=== PATIENT | female | born 2000 | race Caucasian/White ===

== ENCOUNTER 2018-04-01 10:22 | Emergency (ER) | payer SELFPAY ==
[~2018-04-01] VITALS: Ht 157.5 cm; Wt 73.4 kg
[2018-04-01 10:32] VITALS: BP 129/60; PULSE 94; RESP 20; Ht 157.5 cm; Wt 73.4 kg
[2018-04-01] MEDS ORDERED: SOD CHLORIDE 0.9% 1,000 ML IV STA (11:37)
[2018-04-01] MEDS ORDERED: ONDA4TAB14 PO (14:22)
[2018-04-01] MEDS ORDERED: IBUP-1542 PO (14:22)
[2018-04-01] MEDS ORDERED: NITR-58 PO (14:26)
--- NOTE | 2018-04-01 15:52 | ERD ---
ER Documentation Chief Complaint Chief Complaint Complains of dizziness nausea and headache x 3 days HPI 17-year-old female patient with past medical history of ovarian cyst presents to ED complaining of dizziness, nausea, headache, left lower quadrant abdominal pain that started about 3 days ago. Patient reports that when she walks, it worsens her abdominal pain. Denies any fever, chills, diarrhea, chest pain, shortness of breath. Patient reports that her last mensuration was on March 09, 2018. ROS All systems reviewed and are negative except as per history of present illness. Medications Home Meds Active Scripts Nitrofurantoin Monohyd Macrocr* (Macrobid*) 100 Mg Capsr, 100 MG PO BID for 7 Days, CAP Prov:ALEXIS MCNEILL PA-C 04/01/18 Ondansetron (Ondansetron Odt) 4 Mg Tab.rapdis, 4 MG PO Q6H PRN for NAUSEA AND/OR VOMITING, #10 TAB Prov:ALEXIS MCNEILL PA-C 04/01/18 Ibuprofen* (Motrin*) 600 Mg Tab, 600 MG PO Q6, #30 TAB Prov:ALEXIS MCNEILL PA-C 04/01/18 Allergies Allergies: Coded Allergies: No Known Allergy (Unverified , 04/01/18) PMhx/Soc Medical and Surgical Hx: pt denies Surgical Hx Hx Miscellaneous Medical Probl: Yes (ovarian cyst) Hx Alcohol Use: No Hx Substance Use: No Hx Tobacco Use: No Smoking Status: Never smoker FmHx Family History: No diabetes, No coronary disease Physical Exam Vitals Vital Signs Date Temp Pulse Resp B/P (MAP) Pulse Ox O2 O2 Flow FiO2 Time Delivery Rate 04/01/18 98.6 94 20 129/60 100 10:32 (83) Physical Exam Const: [id number], well-nourished. In no acute distress. Head: Atraumatic, normocephalic Eyes: Normal Conjunctiva without injection. No purulent discharge. ENT: Normal external ear, nose. Moist oropharynx without tonsillar exudates. Non-erythematous pharynx. Uvula midline. No drooling. No trismus. Neck: No cervical midline tenderness. Full range of motion. No meningismus. No cervical lymphadenopathy. No JVD. Resp: Clear to auscultation bilaterally. No wheezing, rhonchi, rales, or crackles. No accessory muscle use. No retractions. Cardio: Regular rate and rhythm. No murmurs, rubs or gallops. Abd: Soft, left lower quadrant tenderness, non distended. Normal bowel sounds. No palpable masses. No rebound tenderness. No guarding. Negative McBurney's point. Negative psoas sign. Negative obturator sign. Skin: No petechiae or rashes Back: No midline tenderness. No CVA tenderness. Ext: No cyanosis, or edema. Neur: Awake and alert. Normal gait. Normal coordination. Psych: Normal Mood and Affect Result Diagram: 04/01/18 1149 04/01/18 1148 Results 24 hrs Laboratory Tests Test 04/01/18 11:48 04/01/18 11:49 04/01/18 11:54 04/01/18 12:00 Urine Color YELLOW Urine Clarity SLIGHTLY CLOUDY Urine pH 7.0 Urine Specific 1.009 Eads Urine Ketones NEGATIVE mg/dL Urine Nitrite NEGATIVE mg/dL Urine Bilirubin NEGATIVE mg/dL Urine NEGATIVE mg/dL Urobilinogen Urine Leukocyte 2+ Jasmin/ul Esterase Urine Microscopic 2 /HPF RBC Urine Microscopic 5 /HPF WBC Urine Squamous MODERATE /HPF Epithelial Cells Urine Bacteria FEW /HPF Urine Hemoglobin NEGATIVE mg/dL Urine Glucose NEGATIVE mg/dL Urine Total NEGATIVE mg/dl Protein Sodium Level 142 mmol/L Potassium Level 4.1 mmol/L Chloride Level 105 mmol/L Carbon Dioxide 27 mmol/L Level Anion Gap 10 Blood Urea 7 mg/dl Nitrogen Creatinine 0.56 mg/dl Est Glomerular > 60 mL/min Filtrat Rate mL/min Glucose Level 90 mg/dl Calcium Level 9.5 mg/dl Total Bilirubin 0.1 mg/dl Direct Bilirubin 0.00 mg/dl Indirect 0.1 mg/dl Bilirubin Aspartate Amino 28 IU/L Transf (AST/SGOT) Alanine 41 IU/L Aminotransferase (ALT/SGPT) Alkaline 83 IU/L Phosphatase Total Protein 7.6 g/dl Albumin 4.3 g/dl Globulin 3.30 g/dl Albumin/Globulin 1.30 Ratio Lipase 138 U/L White Blood Count 8.4 10^3/ul Red Blood Count 4.75 10^6/ul Hemoglobin 12.3 g/dl Hematocrit 38.2 % Mean Corpuscular 80.4 fl Volume Mean Corpuscular 25.9 pg Hemoglobin Mean Corpuscular 32.2 g/dl Hemoglobin Concen t Red Cell 14.2 % Distribution Width Platelet Count 394 10^3/UL Mean Platelet 10.3 fl Volume Immature 0.800 % Granulocytes % Neutrophils % 60.0 % Lymphocytes % 27.3 % Monocytes % 6.5 % Eosinophils % 4.9 % Basophils % 0.5 % Nucleated Red 0.0 /100WBC Blood Cells % Immature 0.070 10^3/ul Granulocytes # Neutrophils # 5.1 10^3/ul Lymphocytes # 2.3 10^3/ul Monocytes # 0.6 10^3/ul Eosinophils # 0.4 10^3/ul Basophils # 0.0 10^3/ul Nucleated Red 0.0 10^3/ul Blood Cells # POC Beta HCG, NEGATIVE NEGATIVE Qualitative Current Medications Medications Dose Sig/Hunter Start Time Status Last (Trade) Ordered Route PRN Stop Time Admin Dose Reason Admin Sodium 1,000 ml @ Q1H STAT 04/01/18 DC 04/01/18 Chloride 1,000 mls/hr IV 11:37 11:57 04/01/18 12:36 Procedures/MDM 17-year-old female patient with no significant past medical history presents to ED complaining of dizziness, nausea, headache, abdominal pain. Patient is afebrile and nontoxic-appearing. Patient was further worked up with CBC, CMP, lipase, UA, urine , pelvic ultrasound Patient's pain and symptoms have improved after treatment with 1 L normal saline. CBC: No leukocytosis. No e/o of systemic infection. No e/o anemia. CMP: No e/o severe acidosis, alkalosis, renal failure, diabetic ketoacidosis, liver disease Lipase within normal limits. Urine: 2+ leukocyte esterase, no nitrites, no hematuria. She will be treated for urinary tract infection. Urine : Negative IMPRESSION: Large cyst in the left ovary measuring 5.8 cm with a possible 2.1 cm peripheral nodular component versus hemorrhagic portion. Follow-up pelvic MRI with contrast is recommended. Small amount of free fluid in the pelvis. Patient has a 5.8 cm ovarian cyst, 2.1 cm peripheral nodular cyst versus hemorrhagic. Patient was instructed to follow-up with her [employer]CHOOL RESOURCE OFFICER and obtain an MRI with contrast for further evaluation and treatment. Doppler shows good blood flow for both ovaries, low suspicion for ovarian torsion. Low suspicion for ectopic , ovarian torsion, gastritis, GERD, peptic ulcer disease, cholecystitis, choledocholithiasis, cholangitis, pancreatitis, appendicitis, bowel obstruction, ileus, volvulus, nephrolithiasis, pyelonephritis, hepatitis, perforated viscus, diverticulitis, strangulated/incarcerated hernia, DKA, acute abdomen, mesenteric ischemia or other emergent conditions. Diagnosis: Ovarian cyst, Vomiting Discharge medications: Macrobid, Zofran, Ibuprofen, Macrobid Follow up with primary care physician in 1-2 days for referral to account development manager. Instructed patient to return to the ED sooner for any worsening symptoms. Patient's questions were answered. Patient understood and agreed with discharge plan. Patient discharged stable. Departure Diagnosis: Primary Impression: Ovarian cyst Laterality: left Qualified Codes: N83.202 - Unspecified ovarian cyst, left side Additional Impression: Vomiting Vomiting type: unspecified Vomiting Intractability: unspecified Nausea presence: unspecified Qualified Codes: R11.10 - Vomiting, unspecified Condition: Stable Patient Instructions: What Are Ovarian Cysts?, Urinary Tract Infections in Women Referrals: [facility] YOU HAVE RECEIVED A MEDICAL SCREENING EXAM AND THE RESULTS INDICATE THAT YOU DO NOT HAVE A CONDITION THAT REQUIRES URGENT TREATMENT IN THE EMERGENCY DEPARTMENT. FURTHER EVALUATION AND TREATMENT OF YOUR CONDITION CAN WAIT UNTIL YOU ARE SEEN IN YOUR DOCTORS OFFICE WITHIN THE NEXT 1-2 DAYS. IT IS YOUR RESPONSIBILITY TO M SAMY AN APPOINTMENT FOR FOLOW-UP CARE. IF YOU HAVE A PRIMARY DOCTOR --you should call your primary doctor and schedule an appointment IF YOU DO NOT HAVE A PRIMARY DOCTOR YOU CAN CALL OUR PHYSICIAN REFERRAL HOTLINE AT IF YOU CAN NOT AFFORD TO SEE A PHYSICIAN YOU CAN CHOSE FROM THE FOLLOWING [facility] [address] [facility] [address] [facility] [facility] [address] [facility] [address] [facility] [address] [facility]. [facility]. [address] [facility] [facility] YOU HAVE RECEIVED A MEDICAL SCREENING EXAM AND THE RESULTS INDICATE THAT YOU DO NOT HAVE A CONDITION THAT REQUIRES URGENT TREATMENT IN THE EMERGENCY DEPARTMENT. FURTHER EVALUATION AND TREATMENT OF YOUR CONDITION CAN WAIT UNTIL YOU ARE SEEN IN YOUR DOCTORS OFFICE WITHIN THE NEXT 1-2 DAYS. IT IS YOUR RESPONSIBILITY TO MAKE AN APPOINTMENT FOR FOLOW-UP CARE. IF YOU HAVE A PRIMARY DOCTOR --you should call your primary doctor and schedule and appointment IF YOU DO NOT HAVE A PRIMARY DOCTOR YOU CAN CALL OUR PHYSICIAN REFERRAL HOTLINE AT . IF YOU CAN NOT AFFORD TO SEE A PHYSICIAN YOU CAN CHOSE FROM THE FOLLOWING [facility] INSTITUTIONS: [facility] [address] [place] [address] [facility] [address] [place] [address] [facility] [address] [place] [address] [facility] S[employer]OL RESOURCE OFFICER [place] [address] [facility] [address] [place] [address] OFFICE FAX MARCIA CHAMPAGNENICA [address] [place] [address] [facility] [address] [place] [address] KATHY CANOTANNA [address] [facility], [address], [facility] [address] KANIKA MCDUFFIE [address] [place] [address] [facility] [address] [place] [address] [phone] [address] [facility] [address] - LORRAINE GREGG [address], [place] [address] MARIBELL CLAYTON [address] [facility]. [address], [place] [address] CLAUDE KINNEY [address] [place], [place] [id number] [facility] Hours: 8:00 am - 5:00 pm Additional Instructions: Call your primary care doctor TOMORROW for an appointment during the next 2-3 days.See the doctor sooner or return here if your condition worsens before your appointment time. ALEXIS MCNEILL PA-C Apr 01, 2018 15:52
[2018-04-02] MEDS ORDERED: IBUP-1542 PO (11:01)
[2018-04-02] MEDS ORDERED: TRAM50TA2 PO (11:01)
== END 2018-04-01 14:35 | disposition home or self-care (01) ==
LOC: FTE 10:22
DX: N83.202 Unspecified ovarian cyst, left side (principal); R10.2 Pelvic and perineal pain
CPT/HCPCS: 36415; 76830; 76856; 80053; 81001; 81025; 83690; 85025; 99285; J7030

== ENCOUNTER → 2018-04-02 | Emergency (ER) | payer MEDICAID ==
[~2018-04-02] VITALS: Ht 157.5 cm; Wt 73.3 kg
[~2018-04-02] MED LIST: CEFTRIAXONE 1 GM/50 ML (PMX) 50 ML IVPB ONE; IBUP-1542 PO; KETOROLAC 30 MG INJ IV STA; NITR-58 PO; ONDA4TAB14 PO; ONDANSETRON 4 MG INJ IV STA; TRAM50TA2 PO; morphine 4 MG/ML VIAL IV STA
[2018-04-02 08:06] VITALS: Ht 157.5 cm; Wt 73.3 kg
--- NOTE | 2018-04-02 11:06 | ERD ---
ER Documentation Chief Complaint Chief Complaint CAME FOR RECHECK LEFT OVARIAN CYST; STARTED TO BLEED, PAIN NOT BETTER HPI 17-year-old female presents for left lower quadrant abdominal pain. She complains of vaginal bleeding today. Seen here yesterday and diagnosed with a 5 cm left ovarian cyst. Patient states that she has had a history of ovarian cyst since she was age 12. She denies any fevers. She has some nausea and vomiting yesterday but none today. She denies any fevers, urinary complaints although she was diagnosed with UTI yesterday and is taking Macrobid. ROS All systems reviewed and are negative except as per history of present illness. Medications Home Meds Active Scripts Tramadol HCl (Tramadol HCl) 50 Mg Tablet, 50 MG PO Q4 PRN for PAIN, #15 TAB Prov:BELGICA PETERS MD 04/02/18 Ibuprofen* (Motrin*) 600 Mg Tab, 600 MG PO Q6, #20 TAB Prov:BELGICA PETERS MD 04/02/18 Nitrofurantoin Monohyd Macrocr* (Macrobid*) 100 Mg Capsr, 100 MG PO BID for 7 Days, CAP Prov:ALEXIS MCNEILL PA-C 04/01/18 Ondansetron (Ondansetron Odt) 4 Mg Tab.rapdis, 4 MG PO Q6H PRN for NAUSEA AND/OR VOMITING, #10 TAB Prov:ALEXIS MCNEILL PA-C 04/01/18 Ibuprofen* (Motrin*) 600 Mg Tab, 600 MG PO Q6, #30 TAB Prov:ALEXIS MCNEILL PA-C 04/01/18 Allergies Allergies: Coded Allergies: No Known Allergy (Unverified , 04/01/18) PMhx/Soc Medical and Surgical Hx: pt denies Surgical Hx Hx Miscellaneous Medical Probl: Yes (ovarian cyst) Hx Alcohol Use: No Hx Substance Use: No Hx Tobacco Use: No FmHx Family History: No diabetes, No coronary disease, No other Physical Exam Vitals Vital Signs Date Temp Pulse Resp B/P (MAP) Pulse Ox O2 O2 Flow FiO2 Time Delivery Rate 04/02/18 98.1 87 18 123/58 97 08:06 (79) Physical Exam Const: No acute distress Head: Atraumatic Eyes: Normal Conjunctiva ENT: Normal External Ears, Nose and Mouth. Neck: Full range of motion. No meningismus. Resp: Clear to auscultation bilaterally Cardio: Regular rate and rhythm, no murmurs Abd: Soft, tender left lower quadrant without rebound. No tenderness McBurney's point no Garcia sign., non distended. Normal bowel sounds Skin: No petechiae or rashes Back: No midline or flank tenderness Ext: No cyanosis, or edema Neur: Awake and alert Psych: Normal Mood and Affect Result Diagram: 04/02/1892904/02/18929 Results 24 hrs Laboratory Tests Test 04/02/18 09:30 04/02/18 09:40 White Blood Count 8.1 10^3/ul Red Blood Count 4.67 10^6/ul Hemoglobin 12.1 g/dl Hematocrit 38.1 % Mean Corpuscular Volume 81.6 fl Mean Corpuscular Hemoglobin 25.9 pg Mean Corpuscular Hemoglobin Concent 31.8 g/dl Red Cell Distribution Width 14.4 % Platelet Count 363 10^3/UL Mean Platelet Volume 9.9 fl Immature Granulocytes % 0.500 % Neutrophils % 63.2 % Lymphocytes % 24.8 % Monocytes % 6.4 % Eosinophils % 4.7 % Basophils % 0.4 % Nucleated Red Blood Cells % 0.0 /100WBC Immature Granulocytes # 0.040 10^3/ul Neutrophils # 5.1 10^3/ul Lymphocytes # 2.0 10^3/ul Monocytes # 0.5 10^3/ul Eosinophils # 0.4 10^3/ul Basophils # 0.0 10^3/ul Nucleated Red Blood Cells # 0.0 10^3/ul Urine Color RED Urine Clarity SLIGHTLY CLOUDY Urine pH 6.0 Urine Specific Hendrum 1.006 Urine Ketones NEGATIVE mg/dL Urine Nitrite NEGATIVE mg/dL Urine Bilirubin NEGATIVE mg/dL Urine Urobilinogen NEGATIVE mg/dL Urine Leukocyte Esterase 1+ Jasmin/ul Urine Microscopic RBC 12 /HPF Urine Microscopic WBC 20 /HPF Urine Squamous Epithelial Cells FEW /HPF Urine Calcium Oxalate Crystals MODERATE /HPF Urine Bacteria FEW /HPF Urine Hemoglobin 3+ mg/dL Urine Glucose NEGATIVE mg/dL Urine Total Protein 1+ mg/dl Sodium Level 142 mmol/L Potassium Level 4.2 mmol/L Chloride Level 106 mmol/L Carbon Dioxide Level 26 mmol/L Anion Gap 10 Blood Urea Nitrogen 5 mg/dl Creatinine 0.56 mg/dl Est Glomerular Filtrat Rate mL/min > 60 mL/min Glucose Level 91 mg/dl Calcium Level 9.8 mg/dl Total Bilirubin 0.3 mg/dl Direct Bilirubin 0.00 mg/dl Indirect Bilirubin 0.3 mg/dl Aspartate Amino Transf (AST/SGOT) 27 IU/L Alanine Aminotransferase (ALT/SGPT) 40 IU/L Alkaline Phosphatase 84 IU/L Total Protein 7.4 g/dl Albumin 4.2 g/dl Globulin 3.20 g/dl Albumin/Globulin Ratio 1.31 Lipase 107 U/L POC Beta HCG, Qualitative NEGATIVE Current Medications Medications Dose Sig/Hunter Start Time Status Last (Trade) Ordered Route PRN Stop Time Admin Dose Reason Admin Morphine 4 mg ONCE STAT 04/02/18 DC 04/02/18 Sulfate IV 08:54 09:27 (morphine) 04/02/18 08:55 Ondansetron 4 mg ONCE STAT 04/02/18 DC 04/02/18 HCl (Zofran IV 08:54 09:27 Inj) 04/02/18 08:55 Ceftriaxone 50 ml @ ONCE ONCE 04/02/18 DC 04/02/18 Sodium 100 mls/hr IVPB 10:30 10:49 04/02/18 10:59 Ketorolac 30 mg ONCE STAT 04/02/18 DC 04/02/18 Tromethamine IV 10:18 10:49 (Toradol) 04/02/18 10:26 Procedures/MDM Patient presents with left lower quadrant abdominal pain. Pelvic ultrasound shows unchanged 5 cm simple left ovarian cyst. HCG negative. CBC and CMP normal. Patient initially given morphine 4 mg and Zofran 4 mill grams IV. Patient was given Rocephin 1 g IV for findings of persistent UTI. Urine was sent for culture. She is given Toradol 30 milligrams IV as well. Labor is Dr. Hyde did evaluate the patient at bedside who diagnosed a likely chronic issue can be followed as an outpatient. There is no signs of torsion, appendicitis, ectopic , surgical abdomen patient is well-appearing after observation treatment. She will be treated with tramadol, ibuprofen, continuation of Macrobid, and will be referred to [facility] clinic provided by labor is. She should return for fevers, vomiting, worsening pain, new worsening symptoms. The patient was stable with no new complaints during the ER course. Clinically, there is no current evidence to suggest meningitis, sepsis, acute abdomen, pneumonia, stroke, acute coronary syndrome, pulmonary embolism, aortic dissection or any other emergent condition appearing to require further evaluation or hospitalization. Patient counseled regarding my diagnostic impression and care plan. Prior to discharge all questions answered. Pt agrees with treatment plan and understands strict return precautions. Pt is instructed to follow up with primary care provider within 24-48 hours. Precautionary instructions provided including instructions to return to the ER if not improving or for any worsening or changing symptoms or concerns. Departure Diagnosis: Primary Impression: Ovarian cyst Laterality: left Qualified Codes: N83.202 - Unspecified ovarian cyst, left side Condition: Stable Patient Instructions: Urinary Tract Infections in Women, Ovarian Cyst Additional Instructions: Continue Macrobid for urinary tract infection. Recommend clinic at [address] [place] [address], for gynecology evaluation Check for fevers, worsening pain, vomiting, new or worsening symptoms. Ultrasound shows cyst unchanged from previous. BELGICA PETERS MD Apr 02, 2018 11:06
[2018-04-02 11:11] VITALS: BP 110/55; PULSE 71; RESP 18
== END | disposition home or self-care (01) ==
LOC: FTE 07:38
DX: N83.202 Unspecified ovarian cyst, left side (principal); R10.2 Pelvic and perineal pain
CPT/HCPCS: 36415; 76856; 80053; 81001; 81025; 83690; 85025; 87086; 96365; 96375; J0696; J1885; J2270; J2405; Z7502

== ENCOUNTER 2018-05-22 07:41 | Emergency (ER) | payer MEDICAID, OTHER ==
[~2018-05-22] VITALS: Ht 160 cm; Wt 70.9 kg
[~2018-05-22 07:41] MED LIST changes: -CEFTRIAXONE 1 GM/50 ML (PMX) 50 ML IVPB ONE; -KETOROLAC 30 MG INJ IV STA; -ONDANSETRON 4 MG INJ IV STA; -morphine 4 MG/ML VIAL IV STA
[2018-05-22 07:42] VITALS: RESP 18; Ht 160 cm; Wt 70.9 kg
[2018-05-22] MEDS ORDERED: KETOROLAC 30 MG INJ IV STA (08:13)
[2018-05-22] MEDS ORDERED: SOD CHLORIDE 0.9% 1,000 ML IV STA (08:13)
[2018-05-22] MEDS ORDERED: ONDANSETRON 4 MG INJ IV STA (08:13)
[2018-05-22] MEDS ORDERED: NAPR-985 PO (09:47)
[2018-05-22] MEDS ORDERED: CIPR500T4 PO (09:47)
[2018-05-22] MEDS ORDERED: HYDR-4011 PO (09:47)
[2018-05-22 10:00] VITALS: BP 105/55; PULSE 75
--- NOTE | 2018-05-22 10:12 | ERD ---
ER Documentation Chief Complaint Chief Complaint lower abdominal pain x1 week getting worse;feels bloated-hx of ovairan cyst HPI 17-year-old female presenting with lower abdominal pain times 1 week. She states she has a long history of ovarian cyst and feels that her pain on the left side is intensifying and worsening. She denies any back pain. Had a few episodes of nausea and vomiting this morning but no fevers. Took Advil 6 hours prior to evaluation. Denies medical problems. NKDA. Surgical history denies. Social history denies ROS All systems reviewed and are negative except as per history of present illness. Medications Home Meds Active Scripts Naproxen* (Naprosyn*) 500 Mg Tablet, 500 MG PO BID PRN for PAIN AND/OR INFLAMMATION, #30 TAB Prov:KENA YE PA-C 05/22/18 Hydrocodone/Acetaminophen ([place] 5-325 Tablet) 1 Each Tablet, 1 TAB PO Q6H PRN for PAIN, #7 TAB Prov:KENA YE PA-C 05/22/18 Ciprofloxacin Hcl* (Ciprofloxacin Hcl*) 500 Mg Tablet, 500 MG PO BID for 7 Days, TAB Prov:KENA YE PA-C 05/22/18 Tramadol HCl (Tramadol HCl) 50 Mg Tablet, 50 MG PO Q4 PRN for PAIN, #15 TAB Prov:BELGICA PETERS MD 04/02/18 Ibuprofen* (Motrin*) 600 Mg Tab, 600 MG PO Q6, #20 TAB Prov:BELGICA PETERS MD 04/02/18 Nitrofurantoin Monohyd Macrocr* (Macrobid*) 100 Mg Capsr, 100 MG PO BID for 7 Days, CAP Prov:ALEXIS MCNEILL PA-C 04/01/18 Ondansetron (Ondansetron Odt) 4 Mg Tab.rapdis, 4 MG PO Q6H PRN for NAUSEA AND/OR VOMITING, #10 TAB Prov:ALEXIS MCNEILL PA-C 04/01/18 Ibuprofen* (Motrin*) 600 Mg Tab, 600 MG PO Q6, #30 TAB Prov:ALEXIS MCNEILL PA-C 04/01/18 Allergies Allergies: Coded Allergies: No Known Allergy (Unverified , 04/01/18) PMhx/Soc Medical and Surgical Hx: pt denies Medical Hx, pt denies Surgical Hx Hx Miscellaneous Medical Probl: Yes (ovarian cyst) Hx Alcohol Use: No Hx Substance Use: No Hx Tobacco Use: No FmHx Family History: No diabetes, No coronary disease, No other Physical Exam Vitals Vital Signs Date Temp Pulse Resp B/P (MAP) Pulse Ox O2 O2 Flow FiO2 Time Delivery Rate 05/22/18 98.6 75 105/55 99 Room Air 10:00 (72) 05/22/18 97.8 78 18 119/78 100 07:42 (92) Physical Exam GENERAL: The patient is well-appearing, well-nourished, in no acute distress HEENT: Atraumatic. Conjunctivae are pink. Pupils equal, round, and reactive to light. There is no scleral icterus. Tympanic membranes clear bilaterally. Oropharynx clear. NECK: C-spine is soft and supple. There is no meningismus. There is no cervical lymphadenopathy. CHEST: Clear to auscultation bilaterally. There are no rales, wheezes or rhonchi. HEART: Regular rate and rhythm. No murmurs, clicks, rubs or gallops. ABDOMEN: Normal active bowel sounds. No distention. No organomegaly. Mild tenderness palpation in the suprapubic region with mild lateralization to the left side. Result Diagram: 05/22/18 0827 05/22/18 0827 Results 24 hrs Laboratory Tests Test 05/22/18 08:27 White Blood Count 10.2 10^3/ul Red Blood Count 5.19 10^6/ul Hemoglobin 13.2 g/dl Hematocrit 42.0 % Mean Corpuscular Volume 80.9 fl Mean Corpuscular Hemoglobin 25.4 pg Mean Corpuscular Hemoglobin Concent 31.4 g/dl Red Cell Distribution Width 13.6 % Platelet Count 403 10^3/UL Mean Platelet Volume 10.1 fl Immature Granulocytes % 0.300 % Neutrophils % 66.6 % Lymphocytes % 20.8 % Monocytes % 5.6 % Eosinophils % 6.3 % Basophils % 0.4 % Nucleated Red Blood Cells % 0.0 /100WBC Immature Granulocytes # 0.030 10^3/ul Neutrophils # 6.8 10^3/ul Lymphocytes # 2.1 10^3/ul Monocytes # 0.6 10^3/ul Eosinophils # 0.6 10^3/ul Basophils # 0.0 10^3/ul Nucleated Red Blood Cells # 0.0 10^3/ul Urine Color YELLOW Urine Clarity CLOUDY Urine pH 5.0 Urine Specific Ray 1.033 Urine Ketones TRACE mg/dL Urine Nitrite NEGATIVE mg/dL Urine Bilirubin NEGATIVE mg/dL Urine Urobilinogen NEGATIVE mg/dL Urine Leukocyte Esterase 1+ Jasmin/ul Urine Microscopic RBC 4 /HPF Urine Microscopic WBC 13 /HPF Urine Squamous Epithelial Cells MODERATE /HPF Urine Bacteria FEW /HPF Urine Mucus MANY /HPF Urine Hemoglobin NEGATIVE mg/dL Urine Glucose NEGATIVE mg/dL Urine Total Protein 1+ mg/dl Urine Test NEGATIVE Sodium Level 141 mmol/L Potassium Level 4.4 mmol/L Chloride Level 103 mmol/L Carbon Dioxide Level 27 mmol/L Anion Gap 11 Blood Urea Nitrogen 14 mg/dl Creatinine 0.60 mg/dl Est Glomerular Filtrat Rate mL/min > 60 mL/min Glucose Level 87 mg/dl Calcium Level 9.8 mg/dl Total Bilirubin 0.5 mg/dl Direct Bilirubin 0.00 mg/dl Indirect Bilirubin 0.5 mg/dl Aspartate Amino Transf (AST/SGOT) 30 IU/L Alanine Aminotransferase (ALT/SGPT) 32 IU/L Alkaline Phosphatase 90 IU/L Total Protein 8.3 g/dl Albumin 4.8 g/dl Globulin 3.50 g/dl Albumin/Globulin Ratio 1.37 Lipase 167 U/L Current Medications Medications Dose Sig/Hunter Start Time Status Last (Trade) Ordered Route PRN Stop Time Admin Dose Reason Admin Sodium 1,000 ml @ Q1H STAT 05/22/18 DC 05/22/18 Chloride 1,000 mls/hr IV 08:13 08:45 05/22/18 09:12 Ondansetron 4 mg ONCE STAT 05/22/18 DC 05/22/18 HCl (Zofran IV 08:13 08:45 Inj) 05/22/18 08:16 Ketorolac 30 mg ONCE STAT 05/22/18 DC 05/22/18 Tromethamine IV 08:13 09:31 (Toradol) 05/22/18 08:16 Procedures/MDM DIAGNOSTIC IMAGING REPORT Patient: ELLI ALFORD : 2000 Age: 17 Sex: F MR #: [id number] DOS: 05/22/18 0813 Ordering MD: JACKIE YE PA-C Location: [facility] Room/Bed: PROCEDURE: US Pelvis. CLINICAL INDICATION: pelvic pain TECHNIQUE: Multiple sonographic images of the pelvis were obtained utilizing transabdominal and endovaginal technique. The images were reviewed on a PACS workstation. COMPARISON: US PELVIS 04/02/2018 FINDINGS: The uterus is normal in size with a normal appearance of the myometrium. The uterus measures 7.2 x 3.4 x 3.4 cm. The endometrial stripe is homogeneous in appearance and has the thickness of 7 mm. The ovaries are normal in size and echogenicity. Normal Doppler flow is identified in both ovaries. The right ovary measures 4.4 x 2.7 x 2.7 cm. There is a 1.7 cm simple cyst in the right ovary. The left ovary measures 3.7 x 1.9 x 2.6 cm. There is a small amount of free fluid in the pelvis. RPTAT: AA IMPRESSION: Small simple cyst in the right ovary. Small amount of free fluid in the pelvis. Resolved left ovarian cyst. ER Course: 1L NS and Toradol given in ED MDM: 17-year-old female presenting with abdominal pain. A low suspicion for appendicitis or other acute abdominal emergency. I do not feel a CT scan is indicated. Ultrasound shows ovarian cyst however low suspicion for ovarian torsion or tubo-ovarian abscess. Patient's urine does appear to have infection I will treat with antibiotics. I have low suspicion for septic stone or nephrolithiasis. I have low suspicion for pyelonephritis. Patient is told symptoms change or worsen to return immediately to the ER. All questions answered at discharge Departure Diagnosis: Primary Impression: UTI (urinary tract infection) Additional Impression: Ovarian cyst Condition: Stable Patient Instructions: Understanding Urinary Tract Infections (UTIs), Ovarian Cyst Referrals: [facility] [place] [id number] [facility] [address] [place] [id number] OFFICE FAX JOSHUA CHAMPAGNE [address] [place], [place] [id number] [facility] [address] [place], [place] [id number] DR POMPA, [facility] [address] [facility], [address], [place] [address] KANIKA MCDUFFIE [address] [facility], [place] [address] [facility] [address] [place] [address] [facility], [facility] [address] [address] MEDINA LORRAINE [address], [place] [address] DR CASTANEDA, MARIBELL [address] [facility]. [address], [place] [address] DR YE, [facility] [address] [place] [address] Additional Instructions: FOLLOW UP WITH YOUR PRIMARY CARE PHYSICIAN TOMORROW.Return to this facility if you are not improving as expected. KENA YE PA-C May 22, 2018 10:11
== END 2018-05-22 10:00 | disposition home or self-care (01) ==
LOC: FTE 07:41
DX: N39.0 Urinary tract infection, site not specified (principal); N83.201 Unspecified ovarian cyst, right side; R10.2 Pelvic and perineal pain
CPT/HCPCS: 36415; 76830; 76856; 80053; 81001; 83690; 84703; 85025; 96361; 96374; 96375; J1885; J2405; J7030; Z7502

== ENCOUNTER 2018-08-23 07:56 | Emergency (ER) | payer OTHER ==
[~2018-08-23] VITALS: Ht 152.4 cm; Wt 74.8 kg
[~2018-08-23 07:56] MED LIST changes: +CIPR500T4 PO; +HYDR-4011 PO; +NAPR-985 PO
[2018-08-23 07:58] VITALS: BP 169/77; PULSE 86; RESP 18; Ht 152.4 cm; Wt 74.8 kg
[2018-08-23] MEDS ORDERED: IBUPROFEN 600 MG TAB PO ONE (08:30)
[2018-08-23] MEDS ORDERED: IBUP-1542 PO (09:19)
--- NOTE | 2018-08-23 09:27 | ERD ---
ER Documentation Chief Complaint Chief Complaint LEFT SIDED FLANK PAIN X 1 WEEK HPI Patient is a 17-year-old female, with past medical history of ovarian cyst, presents ER for concerns of fevers, chills, nausea or vomiting. Left-sided flank pain. Patient states pain feels different compared to when she has an ovarian cyst. Patient denies any falls or trauma. She states when she moves she has pain. Patient states when she pushes on her flank region she has pain. Patient denies any dysuria frequency, urgency, hematuria, fevers, chills, nausea, vomiting, chest pain or shortness of breath. Denies any saddle anesthesia, urine incontinence or stool incontinence. Patient denies any medications for her symptoms. ROS All systems reviewed and are negative except as per history of present illness. Medications Home Meds Active Scripts Ibuprofen* (Motrin*) 600 Mg Tab, 600 MG PO Q6, #30 TAB Prov:CATIA TRISTAN PA-C 08/23/18 Naproxen* (Naprosyn*) 500 Mg Tablet, 500 MG PO BID PRN for PAIN AND/OR INFLA MMATION, #30 TAB Prov:KENA YE PA-C 05/22/18 Hydrocodone/Acetaminophen ([place] 5-325 Tablet) 1 Each Tablet, 1 TAB PO Q6H PRN for PAIN, #7 TAB Prov:KENA YE PA-C 05/22/18 Ciprofloxacin Hcl* (Ciprofloxacin Hcl*) 500 Mg Tablet, 500 MG PO BID for 7 Days, TAB Prov:KENA YE PA-C 05/22/18 Tramadol HCl (Tramadol HCl) 50 Mg Tablet, 50 MG PO Q4 PRN for PAIN, #15 TAB Prov:BELGICA PETERS MD 04/02/18 Ibuprofen* (Motrin*) 600 Mg Tab, 600 MG PO Q6, #20 TAB Prov:BELGICA PETERS MD 04/02/18 Nitrofurantoin Monohyd Macrocr* (Macrobid*) 100 Mg Capsr, 100 MG PO BID for 7 Days, CAP Prov:ALEXIS MCNEILL PA-C 04/01/18 Ondansetron (Ondansetron Odt) 4 Mg Tab.rapdis, 4 MG PO Q6H PRN for NAUSEA AND/OR VOMITING, #10 TAB Prov:ALEXIS MCNEILL Tegan CONN 04/01/18 Ibuprofen* (Motrin*) 600 Mg Tab, 600 MG PO Q6, #30 TAB Prov:ALEXIS MCNEILL SENIA 04/01/18 Allergies Allergies: Coded Allergies: No Known Allergy (Unverified , 04/01/18) PMhx/Soc Medical and Surgical Hx: pt denies Surgical Hx Hx Miscellaneous Medical Probl: Yes (ovarian cyst) Hx Alcohol Use: No Hx Substance Use: No Hx Tobacco Use: No Smoking Status: Never smoker FmHx Family History: No diabetes Physical Exam Vitals Vital Signs Date Temp Pulse Resp B/P (MAP) Pulse Ox O2 O2 Flow FiO2 Time Delivery Rate 08/23/18 98.0 86 18 169/77 99 07:58 (107) Physical Exam GENERAL: Well-developed, well-nourished female. Appears in no acute distress. HEAD: Normocephalic, atraumatic. EYES: Pupils are equally reactive bilaterally. EOMs grossly intact. No conjunctival erythema. ENT: Moist mucous membranes. No uvula deviation. No kissing tonsils. NECK: Supple. No meningismus. Normal range of motion of the neck. LUNG: Clear to auscultation bilaterally. No rhonchi, wheezing, rales or coarse breath sounds. HEART: Regular rate and rhythm. No murmurs, rubs or gallops. ABDOMEN: No scars, ecchymosis or rashes noted. Soft, nontender, and nondistended. Positive bowel sounds in all four quadrants. No rebound tenderness, no guarding. (-) McBurney's point tenderness. No CVA tenderness. BACK: No midline tenderness. Tender to palpation over the left flank region. Pain is reproducible. EXTREMITIES: Equal pulses bilaterally. No peripheral clubbing, cyanosis or edema. No unilateral leg swelling. NEUROLOGIC: Alert and oriented. Moving all four extremities without any difficulty. Normal speech. Steady gait. SKIN: Normal color. Warm and dry. No rashes or lesions. Results 24 hrs Laboratory Tests Test 08/23/18 09:06 08/23/18 09:08 POC Beta HCG, Qualitative NEGATIVE Bedside Urine pH (LAB) 5.5 Bedside Urine Protein (LAB) Negative Bedside Urine Glucose (UA) Negative Bedside Urine Ketones (LAB) Negative Bedside Urine Blood Negative Bedside Urine Nitrite (LAB) Negative Bedside Urine Leukocyte Esterase (L Trace Current Medications Medications Dose Sig/Hunter Start Time Status Last (Trade) Ordered Route PRN Stop Time Admin Dose Reason Admin Ibuprofen 600 mg ONCE ONCE 08/23/18 DC 08/23/18 (Motrin) PO 08:30 08:23 08/23/18 08:31 Procedures/MDM MEDICAL DECISION MAKING: This is a 17-year-old female presents the ER for concerns of left-sided flank pain for the last week. Pain is worse with positional changes and with palpation of the affected area.. Vital signs were reviewed. Patient was afeb rile. Patient denied any saddle anesthesia, urinary incontinence, bowel incontinence, night pain or recent trauma. UA was negative for hematuria. Trace leukocytes noted however patient denies any dysuria, frequency, urgency, low suspicion for UTI. At this time, patient presentation most consistent with musculoskeletal pain. Low suspicion for shingles, cauda equine syndrome, spinal fractures, epidural abscess, spinal metastases, osteomyelitis, aortic dissection, ruptured or leaking AA, DJD, sciatica, pyelonephritis or nephrolithiasis. Patient was nontoxic, [id number] prior to discharge. PRESCRIPTIONS: Ibuprofen DISCHARGE: At this time, patient is stable for discharge and outpatient management. RICE therapy and ROM exercises were advised to avoid stiffness. I have instructed the patient to follow-up with his/her primary care physician in 1-2 days. I have discussed with the patient the possibility of needing to see an health care law specialist for further workup and imaging if the pain persists. I have instructed the patient to promptly return to the ER for any new or worsening symptoms including increased pain, swelling, warmth, urinary incontinence, stool incontinence, weakness or numbness. The patient and/or family expressed understanding of and agreement with this plan. All questions were answered. Home care instructions were provided. Disclaimer: Inadvertent spelling and grammatical errors are likely due to EHR/dictation software use and do not reflect on the overall quality of patient care. Also, please note that the electronic time recorded on this note does not necessarily reflect the actual time of the patient encounter. Departure Diagnosis: Primary Impression: Flank pain Condition: Fair Patient Instructions: Muscle Strain, Abdomen Referrals: COMMUNITY CLINICS YOU HAVE RECEIVED A MEDICAL SCREENING EXAM AND THE RESULTS INDICATE THAT YOU DO NOT HAVE A CONDITION THAT REQUIRES URGENT TREATMENT IN THE EMERGENCY DEPARTMENT. FURTHER EVALUATION AND TREATMENT OF YOUR CONDITION CAN WAIT UNTIL YOU ARE SEEN IN YOUR DOCTORS OFFICE WITHIN THE NEXT 1-2 DAYS. IT IS YOUR RESPONSIBILITY TO MAKE AN APPOINTMENT FOR FOLOW-UP CARE. IF YOU HAVE A PRIMARY DOCTOR --you should call your primary doctor and schedule an appointment IF YOU DO NOT HAVE A PRIMARY DOCTOR YOU CAN CALL OUR PHYSICIAN REFERRAL HOTLINE AT IF YOU CAN NOT AFFORD TO SEE A PHYSICIAN YOU CAN CHOSE FROM THE FOLLOWING [facility] [address] [place] [address] [facility] [address] [place] [address] [facility] [address] [facility] [address] [facility] [address] [facility]. [facility] [address] [facility]. [facility] YOU HAVE RECEIVED A MEDICAL SCREENING EXAM AND THE RESULTS INDICATE THAT YOU DO NOT HAVE A CONDITION THAT REQUIRES URGENT TREATMENT IN THE EMERGENCY DEPARTMENT. FURTHER EVALUATION AND TREATMENT OF YOUR CONDITION CAN WAIT UNTIL YOU ARE SEEN IN YOUR DOCTORS OFFICE WITHIN THE NEXT 1-2 DAYS. IT IS YOUR RESPONSIBILITY TO MAKE AN APPOINTMENT FOR FOLOW-UP CARE. IF YOU HAVE A PRIMARY DOCTOR --you should call your primary doctor and schedule and appointment IF YOU DO NOT HAVE A PRIMARY DOCTOR YOU CAN CALL OUR PHYSICIAN REFERRAL HOTLINE AT . IF YOU CAN NOT AFFORD TO SEE A PHYSICIAN YOU CAN CHOSE FROM THE FOLLOWING [facility] INSTITUTIONS: [facility] [address] [place] [address] [facility] [address] [place] [address] [facility] [address] [place] [address] Additional Instructions: Call your primary care doctor TOMORROW for an appointment during the next 1-2 days.See the doctor sooner or return here if your condition worsens before your appointment time. CATIA TRISTAN PA-C Aug 23, 2018 09:27
== END 2018-08-23 09:43 | disposition home or self-care (01) ==
LOC: FTE 07:56
DX: R10.9 Unspecified abdominal pain (principal)
CPT/HCPCS: 81003; 81025; Z7502; Z7610; 99282

== ENCOUNTER 2018-08-26 22:24 | Emergency (ER) | payer SELFPAY | END 2018-08-26 22:44 | disposition left against medical advice (07) | LOC: E/R 22:24 | DX: Z53.21 Procedure and treatment not carried out due to patient leaving prior to being seen by health care provider (principal) ==